=== PATIENT | male | born 1975 | race Caucasian/White ===

== ENCOUNTER → 2024-03-31 08:18 | Outpatient (REF) | payer OTHER, SELFPAY | LOC: RCS 08:18 | PROVIDERS: ATTENDING PHYSICIAN Family Medicine | DX: R07.9 Chest pain, unspecified (principal); R06.09 Other forms of dyspnea | CPT/HCPCS: 93017; 93350 ==

== ENCOUNTER 2024-10-31 17:11 | Emergency (ER) | payer OTHER, SELFPAY ==
[2024-10-31] VITALS (9 sets, daily range): BP systolic 110–148; BP diastolic 63–104; PULSE 75–86
[2024-10-31 17:51] LABS: Hematocrit 48.0 % (39.0-52.0); Hemoglobin 16.9 g/dL (13.0-18.0); Mean Corp Hgb Conc. 35.2 g/dL (33.0-37.0); Mean Corpuscular Volume 87.9 fL (80.0-94.0); Nucleated Red Blood Cells % 0 % (-); Platelet Count 197 10^3/uL (130-400); Red Cell Dist. Width 13.0 % (11.5-14.5)
[2024-10-31 18:18] LABS: ALT (SGPT) 25 U/L (0-50); AST (SGOT) 27 U/L (17-59); Albumin 4.6 g/dl (3.5-5.0); Alkaline Phosphatase 53 U/L (38-126); Blood Urea Nitrogen 15 mg/dl (9-20); Calcium 8.6 mg/dl (8.4-10.2); Carbon Dioxide 24 mmol/L (22-30); Chloride 107 mmol/L (98-107); Glucose 59 mg/dl (70-99); Potassium 4.5 mmol/L (3.5-5.1); Sodium 139 mmol/L (135-145); Total Protein 7.2 g/dl (6.3-8.2); eGFR > 60.00
[2024-10-31 20:49] LABS: Glucose - Point of Care 76 mg/dl (70-99)
[2024-10-31] MEDS: TORADOL 30 MG IV (22:33)
[2024-10-31 23:32] LABS: Troponin I 0.014 ng/ml
--- NOTE | 2024-10-31 23:34 | ED.GENMED ---
History of Present Illness
General
Chief Complaint: Fainting/Passed Out
Source: patient, family and previous hospital records (ED visit March 2023. Patient presented after syncopal event related to diarrhea)
Exam Limitations: none
Time Seen by Provider: 10/31/24 21:59
Nursing documentation reviewed up to this point in time: agreed with
History of Present Illness
History of Present Illness:
The patient is a 49-year-old male with no significant past medical history who experienced a syncope episode today around 3:30 PM. He was on his front porch meeting with a contractor when he suddenly lost consciousness without any preceding
symptoms. A contractor present at the time managed to prevent him from hitting his head, resulting in a fall mainly on his buttocks. After regaining consciousness, the patient was noted to be very sweaty and pale. He reported sweating �buckets� and
experiencing brain fog. He has been feeling fine since the episode, with no recollection of the event itself. No recurrent episodes of syncope.
The patient did not experience nausea, vomiting, diarrhea, or respiratory symptoms prior to the episode. He had eaten approximately 15-20 minutes before the incident. He mentions prior fainting in March 2023, attributed to food poisoning during a
trip to [place], but no such dietary issues were noted this time.
In addition, the patient has a six-week history of left shoulder pain. The pain prevents him from lifting items and has not occurred before. There has been no history of trauma contributing to the shoulder pain. He is right-hand dominant.
He was evaluated by his PCP last week for left shoulder pain.
He has not been taking anything for discomfort.
He takes no medicines on a daily basis. Takes no anticoagulants.
He denies headache, denies neck nor back pain but does admit to moderate coccyx/buttock pain most noted with sitting. No weakness nor numbness. No saddle anesthesia.
Past History
Past History
ED Past Medical History: None
ED Past Surgical History: Other (Gastric sleeve, cholecystectomy)
Social History
Tobacco: Non-smoker
Alcohol: None (Quit all alcohol consumption (03/2024))
Drug: None
Personal:
Living: with family
Employment: Employed
Family History
Family History: Other (Noncontributory)
Phy Exam
Physical Exam
Physical Exam:
General: 49-year-old gentleman appears his stated age, awake and alert, pleasant, appears in no acute distress. and daughter are accompanying.
Skin: Warm, dry. Normal color.
Head: Normocephalic, atraumatic.
Neck: Supple, nontender, full range of motion without difficulty nor pain, trachea midline.
Eyes, Ears, Nose, Mouth, and Throat: Oral mucosa moist.
Cardiovascular: Normal peripheral perfusion, no edema.
Respiratory: Respirations are non-labored. Lungs are clear to auscultation. No chest wall tenderness.
Gastrointestinal: Abdomen nondistended. Soft, nontender. No palpable masses.
Back: Tenderness noted at the coccyx area. There is a minute reddish superficial abrasion mid coccyx region. There is no ecchymosis nor soft tissue swelling. No crepitus. No tenderness over the sacrum nor SI joints nor midline bony vertebral
tenderness.
Musculoskeletal: Tenderness over left shoulder anterior as well as laterally without crepitus. Moderately restricted abduction to 100 degrees. There is no soft tissue swelling nor erythema.
Neurological: Alert and oriented to person, place, time, and situation, no focal neurological deficit observed.
Psychiatric: Cooperative, appropriate mood and affect.
Course
Orders/Labs/Results
Orders:
Orders
10/31/24 17:13
Electrocardiogram (*1) Urgent
Reason for Study: Chest Pain
EKG- Treatment ONCE
10/31/24 17:39
Complete Blood Count/With Diff Urgent
Comprehensive Metabolic Panel Urgent
10/31/24 20:45
Bedside Glucose- Treatment ONCE
10/31/24 22:04
Orthostatic VS- Treatment ONCE
10/31/24 22:28
Ketorolac [Toradol] 30 mg IV NOW STA
Coccyx/Sacrum, 2 View CR [CR Sacrum/coccyx Min 2 View] Urgent
Comment:
Reason For Exam: syncope, fall onto buttock, coccyx pain
Shoulder, Left, Trauma CR [CR Shoulder, Trauma - Left] Urgent
Comment:
Reason For Exam: syncope, left shoulder pain-acute on chronic
10/31/24 22:57
Troponin I Urgent
Abnormal Lab Results
10/31/24
17:39
MPV 10.5 H fL
(7.4-10.4)
Abs Immat Gran (auto) 0.1 H 10^3/uL
(0-0.05)
Glucose 59 L mg/dl
(70-99)
10/31/24 17:39
10/31/24 17:39
Vital Signs
Initial and Last Documented VS:
Initial Vital Signs
Temp Pulse Resp BP Pulse Ox
98.2 F 90 18 141/85 97
10/31/24 17:23 10/31/24 17:23 10/31/24 17:23 10/31/24 17:23 10/31/24 17:23
Last Documented Vital Signs
Temp Pulse Resp BP Pulse Ox
98.3 F 76 16 112/63 98
10/31/24 20:30 10/31/24 21:45 10/31/24 21:45 10/31/24 21:32 10/31/24 23:45
MDM/Problems Addressed
Differential Diagnosis Includes:
The Differential Diagnosis includes, in no particular order and is not limited to:
- Vasovagal syncope
- Cardiac arrhythmia
- Orthostatic hypotension
- Neurological disorder
- Musculoskeletal injury (shoulder pain)
- Cervical radiculopathy
- Hypoglycemia
- Anemia
- Electrolyte imbalance
- Psychological stress-related.
MDM/Problems Addressed:
Acute:
- Syncope, likely vasovagal.
- Left shoulder pain with decreased range of motion.
- Coccyx contusion, rule out coccyx fracture
The emergency department evaluation thus far including blood work and electrocardiogram (EKG) were unremarkable. 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
involving activities on scissor lifts. Cardiac enzymes are being checked to rule out cardiac involvement. The patient was advised to lie flat if another episode occurs to prevent prolonged symptoms.
- Will check troponin.
- X-ray for left shoulder and coccyx to evaluate for potential fracture.
- Recommend a donut pillow for coccyx pain relief.
- Will give a dose of Toradol now for pain.
- Patient advised to follow up with a primary care provider for further evaluation of syncope and shoulder pain.
*Radiology
Radiology exam reviewed: preliminary read by ED provider (Left shoulder x-rays unremarkable. Sacrum/coccyx x-ray unremarkable. No evidence of fracture.)
*Pulse Oximetry
SaO2: 98
Oxygen Mode of Delivery: Room air
Patient hypoxic: no
*EKG
Interpreted by ED Provider?: Yes
Interpretation: normal
Comparison EKG: no changes (Unchanged from previous March 2023)
Rate: normal
Rhythm: sinus
Emmett: normal axis
Interval: normal interval
QRS Pattern: normal QRS
Ischemia: no ischemia
*Car Wash Manager Interpretation
Rate: normal
Interpretation: normal
Rhythm: sinus
*Critical Care Note
Total Time (30-74mins, 75-104mins- exclusive of procedures): Not Applicable
Update Note
Update Note:
23:50
Troponin is negative.
Orthostatic vital signs are negative/normal.
Monitor continues to show normal sinus rhythm without ectopy nor arrhythmia.
Left shoulder x-ray and Sacrum/coccyx�initially interpreted by myself appear within normal limits. No evidence of fracture.
Patient feeling improved after a dose of Toradol. Resting comfortably.
I do suspect a vasovagal syncopal event however must also consider arrhythmia thus recommend follow-up with cardiology as well as PCP.
Tylenol versus ibuprofen as needed for discomfort.
Doughnut pillow for sacral/coccyx support.
Return precautions discussed.
ED Attending Note
-
Portions of this chart may have been created with voice recognition software.� Occasional wrong word or��sound alike� substitutions may have occurred due to the inherent limitations of voice recognition software.
Discharge Plan
Departure
Patient Disposition: Home (Routine Discharge)
Date of Disposition: 11/01/24
Time of Disposition: 00:02
Patient with high blood pressure during this ER visit?: No
Condition: Good
Discharge Problem:
Episode of syncope, Coccyx contusion, Left shoulder strain
Instructions: Syncope (Fainting) (DC), Coccyx Injury ED
Prescriptions:
No Action
ondansetron 8 mg tablet,disintegrating
8 mg PO TID PRN (Reason: nausea and vomiting) Qty: 15 0RF
ciprofloxacin HCl 500 mg Tablet
500 mg PO BID Qty: 14 0RF
Referrals:
Kalin Ahn DO [Active, Cardiology] - Call in 1-3 days for appt
Raisa Feldman MD [Family Provider, Family Practice] - Call in 1-3 days for appt
Interventions
Interventions:
*Risk Screen - Suicide Last Done: 10/31/24 17:28
*General Assessment Last Done: 10/31/24 17:27
*ED COVID-19 Vaccine History Last Done: 10/31/24 17:27
ED- Cardiac Assessment Last Done: 10/31/24 21:59
ED- Neurological Assessment Last Done: 10/31/24 21:59
Discharge Date and Time
Print Language: CYMRAES
--- NOTE | 2024-11-01 00:01 | EDRN ---
Patient reports pain is a little better, Dr. Lawrence also back in to re-assess patient.
== END 2024-11-01 00:32 | disposition home or self-care (01) ==
LOC: EMR 17:11
PROVIDERS: Student in an Organized Health Care Education/Training Program; EMERGENCY PHYSICIAN Emergency Medicine; FAMILY PHYSICIAN Family Medicine
DX: R55 Syncope and collapse (principal); S30.0XXA Contusion of lower back and pelvis, initial encounter; S46.912A Strain of unspecified muscle, fascia and tendon at shoulder and upper arm level, left arm, initial encounter
CPT/HCPCS: 96374; 99285; 72220; 73030; 80053; 82962; 84484; 85025; 93005

== ENCOUNTER → 2024-12-20 07:08 | Outpatient (REF) | payer OTHER, SELFPAY | LOC: MRI 3T 07:08 | PROVIDERS: ATTENDING PHYSICIAN Family Medicine | DX: M25.512 Pain in left shoulder (principal) | CPT/HCPCS: 73221 ==

== ENCOUNTER 2024-12-26 06:50 | Outpatient (RCR) | payer OTHER, SELFPAY | END 2024-12-26 23:59 | disposition home or self-care (01) | LOC: RPT 06:50 | PROVIDERS: ATTENDING PHYSICIAN Orthopaedic Surgery Hand Surgery; FAMILY PHYSICIAN Family Medicine | DX: S43.432D Superior glenoid labrum lesion of left shoulder, subsequent encounter (principal); Z73.6 Limitation of activities due to disability; M25.512 Pain in left shoulder; M62.81 Muscle weakness (generalized); X50.9XXD Other and unspecified overexertion or strenuous movements or postures, subsequent encounter | CPT/HCPCS: 97110; 97162 ==

== ENCOUNTER 2025-01-23 08:12 | Outpatient (RCR) | payer OTHER, SELFPAY | END 2025-01-23 23:59 | disposition home or self-care (01) | LOC: RPT 08:12 | PROVIDERS: ATTENDING PHYSICIAN Orthopaedic Surgery Hand Surgery; FAMILY PHYSICIAN Family Medicine | DX: S43.432D Superior glenoid labrum lesion of left shoulder, subsequent encounter (principal); Z73.6 Limitation of activities due to disability; M25.512 Pain in left shoulder; M62.81 Muscle weakness (generalized); X50.9XXD Other and unspecified overexertion or strenuous movements or postures, subsequent encounter | CPT/HCPCS: 97010; 97110; 97140; 97530 ==

== ENCOUNTER 2025-02-09 16:57 | Outpatient (RCR) | payer OTHER, SELFPAY | END 2025-02-09 23:59 | disposition home or self-care (01) | LOC: RPT 16:57 | PROVIDERS: ATTENDING PHYSICIAN Orthopaedic Surgery Hand Surgery; FAMILY PHYSICIAN Family Medicine | DX: S43.432D Superior glenoid labrum lesion of left shoulder, subsequent encounter (principal); Z73.6 Limitation of activities due to disability; M25.512 Pain in left shoulder; M62.81 Muscle weakness (generalized); X50.9XXD Other and unspecified overexertion or strenuous movements or postures, subsequent encounter | CPT/HCPCS: 97010; 97110; 97140 ==